=== PATIENT | male | born 1995 | race Two or more races ===

== ENCOUNTER 2019-02-03 16:07 | Emergency (ER) | payer OTHER ==
[~2019-02-03] VITALS: Ht 188 cm; Wt 117.9 kg
--- NOTE | 2019-02-03 16:17 | NUR ---
TO ER BED 10. PT IS AAOX4. NO ACUTE DISTRESS. COMPLAINT OF PAIN IN THE LEFT TESTICLE SINCE WEDNESDAY WITH SCALE OF 5/10 AND TODAY SCALE OF 7/10. MD AT BEDSIDE. AWAITING ORDERS.
--- NOTE | 2019-02-03 16:49 | NUR ---
US TECH AT BEDSIDE
[2019-02-03 17:06] VITALS: BP 132/78
--- NOTE | 2019-02-03 17:06 | NUR ---
Patient discharged to home in stable condition. Written and verbal after care instructions given. Patient verbalizes understanding of instruction.
== END 2019-02-03 17:07 | disposition home or self-care (01) ==
LOC: ER 16:09
DX: N50.812 Left testicular pain (principal)
CPT/HCPCS: 76870-TC